=== PATIENT | male | born 2000 | race African-American/Black ===

== ENCOUNTER 2021-09-05 16:14 | Emergency (ER) | payer MEDICAID ==
[~2021-09-05] VITALS: Ht 177.8 cm; Wt 80.0 kg
[2021-09-05] MEDS ORDERED: ACETAMINOPHEN 325MG TABLET PO ONE (18:15)
[2021-09-05] MEDS ORDERED: IBUPROFEN 600MG TABLET PO ONE (18:15)
[2021-09-05 18:30] VITALS: BP 113/51
[2021-09-05] MEDS ORDERED: IBUP-2029 MT (19:13)
== END 2021-09-05 19:31 | disposition home or self-care (01) ==
LOC: ER 16:14
DX: M54.50 Low back pain, unspecified (principal); Z98.890 Other specified postprocedural states
CPT/HCPCS: 71045; 99283